=== PATIENT | female | born 2005 | race Caucasian/White ===

== ENCOUNTER 2023-09-15 21:24 | Emergency (ER) | payer BC, SELFPAY ==
[2023-09-15 21:26] VITALS: BP 160/106
--- NOTE | 2023-09-15 22:23 | ED.GENMED ---
History of Present Illness
<DERIK Blanco - Last Filed: 09/16/23 01:44>
General
Chief Complaint: Musculo-Skeletal Complaint
Time Seen by Provider: 09/15/23 22:18
Travel History
Have you had any contact with someone who has COVID-19?: No
Do you have any symptoms of coronavirus? Fever > 100 degrees, chills, cough, shortness of breath, sore throat, loss of taste or smell, muscle aches, or headache?: No
History of Present Illness
History of Present Illness:
This is a 18 yo female PMH asthma presenting for back pain x 1 day. She states she was trying to crack her back yesterday evening with spinal extension and felt a 'painful pop'. Since then, she has had worsening pain which she rates as 7/10 and
sharp in quality, radiating from the sacroiliac region to the R lumbar paraspinal region. Pain is worse with spinal flexion and extension.She has been taking motrin at home which helps temporarily.
She is able to ambulate, albeit with pain, denies urinary or bowel incontinence, denies weakness of the lower extremities, and denies saddle anesthesia.
She denies previous episodes of similar pain and denies surgical history.
Review of Systems
<DERIK Blanco - Last Filed: 09/16/23 01:44>
Review of Systems
Allergies reviewed?: Yes
Constitutional: Reports no symptoms
Respiratory: Reports no symptoms
Cardiac: Reports no symptoms
: Reports no symptoms
Phy Exam
<DERIK Blanco - Last Filed: 09/16/23 01:44>
General Physical Exam
General Presentation: well appearing
General age: appears stated age
General Skin: warm
General Habitus: normal
General Mental: alert
General Hydration: appears well hydrated
Cardiovascular Exam
Cardiovascular Exam: regular rate/rhythm
Pulmonary Exam
Pulmonary Exam: lungs clear
Neurological Exam
Neurological Exam: alert, oriented x3, no motor deficits and normal gait
Musculoskeletal Exam
Musculoskeletal Exam: back pain (no palpable tenderness) and neuro vasc intact
Course
<DERIK Blanco - Last Filed: 09/16/23 01:44>
Orders/Labs/Results
Orders:
Orders
09/15/23 23:22
Dexamethasone Pf [Decadron] 10 mg PO NOW STA
Vital Signs
Initial and Last Documented VS:
Initial Vital Signs
Temp Pulse Resp BP Pulse Ox
98.1 F 100 22 160/106 100
09/15/23 21:26 09/15/23 21:26 09/15/23 21:26 09/15/23 21:26 09/15/23 21:26
Last Documented Vital Signs
Temp Pulse Resp BP Pulse Ox
98.1 F 90 16 138/72 99
09/15/23 21:26 09/15/23 23:30 09/15/23 23:30 09/15/23 23:30 09/15/23 23:30
<Carl Griffith MD - Last Filed: 09/15/23 23:45>
Orders/Labs/Results
Orders:
Orders
09/15/23 23:22
Dexamethasone Pf [Decadron] 10 mg PO NOW STA
Vital Signs
Initial and Last Documented VS:
Initial Vital Signs
Temp Pulse Resp BP Pulse Ox
98.1 F 100 22 160/106 100
09/15/23 21:26 09/15/23 21:26 09/15/23 21:26 09/15/23 21:26 09/15/23 21:26
Last Documented Vital Signs
Temp Pulse Resp BP Pulse Ox
98.1 F 90 16 138/72 99
09/15/23 21:26 09/15/23 23:30 09/15/23 23:30 09/15/23 23:30 09/15/23 23:30
<DERIK Blanco - Last Filed: 09/16/23 01:44>
MDM/Problems Addressed
Differential Diagnosis Includes:
Muscle strain
Lumbar hernia
Spinal stenosis
MDM/Problems Addressed:
Her presentation is most consistent with a muscle strain. This patient is advised to continue NSAIDS as needed for pain control. She will be diven dexamethasone to take at home if her pain does not improve. She will also be instructed to rest as
much as she can and apply ice/heat for 1 week.
There is no evidence of neurological injury, including cauda equina syndrome, on both history and physical exam, thus we will not need an MRI for further investigation of the injury.
Due to the atraumatic mechanism of injury and the patient's lack of medical history that increases her risk for fracture due to atraumatic injury, an XRAY is not necessary to rule out fracture.
<DERIK Blanco - Last Filed: 09/16/23 01:44>
*Critical Care Note
Total Time (30-74mins, 75-104mins- exclusive of procedures): Not Applicable
ED Attending Note
<DERIK Blanco - Last Filed: 09/16/23 01:44>
-
Portions of this chart may have been created with voice recognition software.� Occasional wrong word or��sound alike� substitutions may have occurred due to the inherent limitations of voice recognition software.
<Carl Griffith MD - Last Filed: 09/15/23 23:45>
ED Attending Note
Patient seen and examined by attending physician: Yes
ED Attending Note:
Patient who is a college student, presents to ED secondary to sudden onset of lower back pain, while she was stretching her back yesterday afternoon. Since then, patient has had persistent pain despite taking ibuprofen frequently. Denies fever or
chills. Denies direct trauma. Denies urinary or bowel incontinence. Denies loss of sensation or weakness. Denies inability to ambulate. Denies previous history of back injury or pain. However, patient does play lacrosse competitively.
Physical Exam
General: mild painful distress, not acutely ill. afebrile
Head: nc/at. eomi
Neck: supple. normal range of motion..
Abdomen: normal bowel sounds. not tender.
Back: no midline tenderness/deformity. mild para lumbar tenderness at level of L2-3.
Neuro: alert and oriented. no focal neurological deficits. normal gait.
Skin: no rash
Psychiatric: well kept. interactive and cooperative
Extremities: no edema. no calf tenderness.
History and exam consistent with likely back strain, associated with muscle spasm. No indication for any imaging studies at this time. Fortunately, patient does not have any exam findings concerning for cauda equina syndrome. Patient is able to
ambulate with steady gait independently, without any assistance. Patient will be treated conservatively with recommendation to continue to use NSAIDs 2-3 times daily, along with warm compress. Patient will be given 1 dose of Decadron prior to
discharge, with prescription for 1 additional dose to be taken in 48 hours, if symptoms persist. Patient states that she already has an appointment with her primary care physician for reevaluation. Patient advised to return to ED immediately with
worsening symptoms, i.e. fever/worsening pain/urinary or bowel incontinence/or weakness. Patient expresses understanding, at time of discharge, to the care of her mother.
Discharge Plan
Departure
Patient Disposition: Home (Routine Discharge)
Date of Disposition: 09/15/23
Time of Disposition: 23:22
Patient with high blood pressure during this ER visit?: Yes
Condition: Good
Discharge Problem:
Back pain
Instructions: Back Pain
Prescriptions:
New
dexamethasone 2 mg tablet
10 mg PO DAILY 1 Days Qty: 5 0RF
No Action
oseltamivir 6 MG/ML suspension for reconstitution
75 mg PO BID Qty: 5 0RF
budesonide-formoterol [Symbicort] 1 PUFF HFA aerosol inhaler
2 puff inhalation R BID Qty: 1 0RF
Referrals:
Jammie Campbell CRNP [Family Provider] -
Activity Restrictions/Additional Instructions:
As discussed, please follow-up with your primary care physician for reevaluation, including potential MRI as outpatient, if symptoms persist. Please return to ED immediately with worsening symptoms, i.e. fever/worsening pain/urinary or bowel
incontinence, weakness. You may take prescribed steroid medication in 48 hours, if your back symptoms continue.
Interventions
Interventions:
*Risk Screen - Suicide Last Done: 09/15/23 21:26
*General Assessment Last Done: 09/15/23 21:52
*Neglect/Abuse Screening Last Done: 09/15/23 21:26
ED- Fall Risk Assessment Last Done: 09/15/23 21:51
*ED COVID-19 Vaccine History Last Done: 09/15/23 21:52
*Nursing Disposition Last Done: 09/15/23 23:30
ED-Musculoskeletal Assessment Last Done: 09/15/23 21:51
Discharge Date and Time
Discharge Date/Time: 09/15/23 23:31
Print Language: OMANI
[2023-09-15] MEDS: DECADRON 10 MG PO (23:25)
[2023-09-15 23:30] VITALS: BP 138/72
== END 2023-09-15 23:31 | disposition home or self-care (01) ==
LOC: EMR 21:24
PROVIDERS: EMERGENCY PHYSICIAN Emergency Medicine; FAMILY PHYSICIAN Nurse Practitioner Adult Health
DX: M54.50 Low back pain, unspecified (principal); M62.830 Muscle spasm of back; R03.0 Elevated blood-pressure reading, without diagnosis of hypertension; J45.909 Unspecified asthma, uncomplicated; Z91.018 Allergy to other foods
CPT/HCPCS: 99283

== ENCOUNTER 2023-09-17 23:31 | Emergency (ER) | payer BC, SELFPAY ==
[2023-09-17 23:44] VITALS: BP 172/104
--- NOTE | 2023-09-18 02:32 | ED.GENMED ---
History of Present Illness
General
Chief Complaint: Wound Check/Suture Removal
Time Seen by Provider: 09/18/23 02:32
Travel History
Have you had any contact with someone who has COVID-19?: No
Do you have any symptoms of coronavirus? Fever > 100 degrees, chills, cough, shortness of breath, sore throat, loss of taste or smell, muscle aches, or headache?: No
History of Present Illness
History of Present Illness:
HPI: The patient presents with pain/bleeding in the upper portion of the buttock. She was seen here 2 nights ago was placed on steroids for back pain. She saw primary care doctor who diagnosed her with an abscess/cyst and referred her to a
surgeon�see the surgeon tomorrow. This evening, she noticed a foul odor drainage and bleeding so she came in here for further evaluation.
EXAM:
GENERAL: She appears uncomfortable
HEENT: Moist oral mucosa
BACK: There is a 3 cm area of indurated tissue/abscess with scant overlying erythema to the medial upper portion of the right gluteus region
NEUROLOGIC: Excellent strength all extremities, no coordination deficits
PSYCHIATRIC: Appropriate mental status, normal insight and judgement
EXTREMITIES: Nontender, no edema, moves all extremities equally
SKIN: As above
TIME OF INITIAL ENCOUNTER: 2:45 AM
NUMBER AND COMPLEXITY OF PROBLEMS ADDRESSED AT THE ENCOUNTER
� Chronic conditions affecting care: Asthma, celiac disease, eczema
� Acute Exacerbation and/or Progression of Chronic Illness: This is an acute problem
� Differential Diagnosis includes: Pilonidal cyst, pilonidal abscess, gluteal abscess, based on location, no evidence for rectal or anal abscess
AMOUNT AND/OR COMPLEXITY OF DATA TO BE REVIEWED AND ANALYZED
� I performed an independent evaluation of and my interpretation is:
EKG:
CT:
X-rays:
Laboratory Studies: Wound culture pending
Other:
� Review of other/old records: I reviewed the ED notes from 2 nights ago
� Clinical information was obtained by an independent historian: Spoke to mother at bedside
� Prescriptions/Medications Considered but not given: The patient is already on Augmentin
� Further testing considered but not performed:
RISK OF COMPLICATIONS AND/OR MORBIDITY OR MORTALITY OF PATIENT MANAGEMENT
� Social determinants of health affecting care: Lives at home, attends college
� Discussion with other providers:
� Escalation of care including admission/observation vs risk of discharge considered: I did perform an I&D but there was only small amount of blood without any significant pus. She is already on Augmentin. I sent for wound
culture. She is to follow-up with surgery tomorrow. Started narcotic analgesia.
Phy Exam
Physical Exam
Physical Exam:
See HPI
Course
Orders/Labs/Results
Orders:
Orders
09/18/23 02:56
Ketorolac [Toradol] 30 mg IM NOW STA
Oxycodone/Acetaminophen [Percocet 5/325] 1 tablet PO NOW STA
09/18/23 02:59
Wound Culture [Wound/Abscess/Other Culture] Urgent
LENNY Source: Abscess
Specimen Description:
Date Specimen was Collected: 09/18/23
Time Specimen was Collected: 03:00
Vital Signs
Initial and Last Documented VS:
Initial Vital Signs
Pulse Resp BP Pulse Ox
110 24 172/104 98
09/17/23 23:44 09/17/23 23:44 09/17/23 23:44 09/17/23 23:44
Last Documented Vital Signs
Pulse Resp BP Pulse Ox
91 16 157/96 99
09/18/23 02:59 09/18/23 02:59 09/18/23 02:59 09/18/23 02:59
Procedures
Incision/Drainage/Joint Aspiration
Right Medial Buttock:
Anethesia: 1% Lidocaine with Epi
Preparation: cleaned with Hibiclens
Type of procedure: incise
Nature of site: abscess
Description of abscess: less than 3cm
Loculations broken up: Yes
How much fluid was obtained?: scant amount
Fluid description: bloody
Treatment: left open for drainage
*Critical Care Note
Total Time (30-74mins, 75-104mins- exclusive of procedures): Not Applicable
ED Attending Note
-
Portions of this chart may have been created with voice recognition software.� Occasional wrong word or��sound alike� substitutions may have occurred due to the inherent limitations of voice recognition software.
Discharge Plan
Departure
Patient Disposition: Home (Routine Discharge)
Date of Disposition: 09/18/23
Time of Disposition: 02:56
Patient with high blood pressure during this ER visit?: Yes
Discharge Problem:
Pilonidal abscess
Prescriptions:
New
oxycodone-acetaminophen [Percocet] 5-325 mg tablet
1 - 2 tab PO Q6HPRN PRN (Reason: pain) Qty: 14 0RF
No Action
oseltamivir 6 MG/ML suspension for reconstitution
75 mg PO BID Qty: 5 0RF
budesonide-formoterol [Symbicort] 1 PUFF HFA aerosol inhaler
2 puff inhalation R BID Qty: 1 0RF
dexamethasone 2 mg tablet
10 mg PO DAILY 1 Days Qty: 5 0RF
Referrals:
Jammie Campbell CRNP [Family Provider] -
Activity Restrictions/Additional Instructions:
I did inject the area with lidocaine with epinephrine and made a small incision to allow some more drainage. There was no further significant amount of pus that was removed. You may have some mild bleeding. I would still recommend that you see
the surgeon tomorrow. Continue the antibiotics. I sent a prescription for a narcotic. I also recommend that he continue taking NSAIDs as well. Stop the steroid.
Interventions
Interventions:
*Risk Screen - Suicide Last Done: 09/17/23 23:44
*General Assessment Last Done: 09/18/23 02:59
*Neglect/Abuse Screening Last Done: 09/17/23 23:44
*ED COVID-19 Vaccine History Last Done: 09/18/23 02:48
Discharge Date and Time
Print Language: MONTSERRATIAN
[2023-09-18 02:59] VITALS: BP 157/96
[2023-09-18] MEDS: PERCOCET 5/325 1 TABLET PO (03:08)
[2023-09-18] MEDS: TORADOL 30 MG IM (03:10)
== END 2023-09-18 03:23 | disposition home or self-care (01) ==
LOC: EMR 23:31
PROVIDERS: EMERGENCY PHYSICIAN Emergency Medicine; FAMILY PHYSICIAN Nurse Practitioner Adult Health
DX: L05.01 Pilonidal cyst with abscess (principal); R03.0 Elevated blood-pressure reading, without diagnosis of hypertension
CPT/HCPCS: 10080; 99284; 96372; 87070; 87205

== ENCOUNTER → 2023-09-24 14:08 | Outpatient (REF) | payer BC, SELFPAY | LOC: RCS 14:08 | PROVIDERS: ATTENDING PHYSICIAN Internal Medicine Cardiovascular Disease; FAMILY PHYSICIAN Nurse Practitioner Adult Health | DX: R07.89 Other chest pain (principal) | CPT/HCPCS: 93017 ==

== ENCOUNTER → 2023-12-12 07:04 | Outpatient (REF) | payer BC, SELFPAY ==
--- NOTE | 2023-12-12 10:30 | EEG.RPT ---
Electroencephalogram Report
Recording
Date of EE12/12/23
Type of EEG: Routine
Length of EEG recordin minutes
Done with Video Recording: Yes
Patient Status: Outpatient
Recording Conditions: Awake and Drowsy
Hyperventilation Performed: Yes
Photic Stimulation Performed: Yes
Report
LESS THAN 1 HOUR EEG REPORT
EEG INTERPRETATION:
Unremarkable EEG for age
CLINICAL CORRELATION:
A normal EEG does not rule out a diagnosis of epilepsy. If clinical suspicion for seizure persists, a prolonged recording may be warranted.
Clinical correlation is advised.
METHODS:
A 21 channel digitized electroencephalogram (EEG) was performed in the [facility]. The 10/20 international system of electrode placement was used with ECG and lateral/vertical eye movements recorded. Persyst quantitative EEG
analysis was performed.
ELECTROENCEPHALOGRAPHER IMPRESSION(S):
Quality of study
Good
Background
Unremarkable, well maintained, medium amplitude alpha-frequency and unremarkable anterior-posterior voltage gradient
With eye opening the background activity changed to a low voltage mixture of frequencies.
Sleep
Drowsiness present
Hyperventilation
Did not activate the record
Photic Stimulation
Did not activate the record
ECG
Normal sinus rhythm
== END ==
LOC: EEG 07:04
PROVIDERS: ATTENDING PHYSICIAN Specialist; FAMILY PHYSICIAN Physician Assistant
DX: R55 Syncope and collapse (principal)
CPT/HCPCS: 95816